=== PATIENT | male | born 1940 | race Two or more races ===

== ENCOUNTER 2019-07-18 12:33 | Emergency (ER) | payer SELFPAY ==
[~2019-07-18] VITALS: Ht 185.4 cm; Wt 65.8 kg
[2019-07-18 12:53] VITALS: BP 148/83
== END 2019-07-18 14:58 | disposition home or self-care (01) ==
LOC: ER 12:33 → EDSEX 12:33 → ER 14:58
DX: H61.23 Impacted cerumen, bilateral (principal); H60.503 Unspecified acute noninfective otitis externa, bilateral
CPT/HCPCS: 69209